=== PATIENT | male | born 1955 | race Caucasian/White ===

== ENCOUNTER 2016-06-14 12:55 | Outpatient (CLI) | payer OTHER ==
[~2016-06-14 12:55] MED LIST: BENAZEPRIL HCL20 MG PO; IBUPROFEN400 MG PO; MULTIVITAMIN1 TAB PO; NORCO1 TA1 PO; PANTOPRAZOLE SO40 MG PO; PROSTATE PO; TAMSULOSIN HCL0.4 MG PO; VITAMIN D-31000 UNIT PO
--- NOTE | 2016-06-16 08:17 | DIAGNOSTIC IMAGING REPORT ---
PROCEDURE: 2-D M-mode echo Doppler CLINICAL INDICATION: Atrial fib TECHNIQUE: Standard 2-D M-mode echo Doppler technique COMPARISON: None available FINDINGS: The aortic valve is normal configuration 1+ aortic insufficiency is apparent. The mitral valve is normal. The tricuspid valve exhibits 1+ TR with RVSP 40 pulmonic valve is normal mild left atrial enlargement is apparent right atrium is normal in size. Mild RVE is present with normal RV function LVH is present with an ejection fraction of 70% with normal contraction there are no abnormalities of the aortic order pericardium present. IMPRESSION: 1+ aortic insufficiency 1+ TR with RVSP 40 Mild left atrial enlargement Mild RVE with normal function LVH Ejection fraction 70% with normal contraction
[2016-08-17] MEDS ORDERED: ASPIRIN ADULT L81 M1 PO (16:58)
[2016-08-17] MEDS ORDERED: LOPRESSOR50 MG PO (16:58)
[2016-08-17] MEDS ORDERED: VITAMIN D-31000 UNIT PO (16:59)
== END 2016-06-14 23:00 ==
LOC: US SRH 12:55
DX: I35.1 Nonrheumatic aortic (valve) insufficiency (principal); I51.7 Cardiomegaly

== ENCOUNTER 2016-10-04 11:06 | Outpatient (CLI) | payer OTHER ==
[~2016-10-04 11:06] MED LIST changes: +ASPIRIN ADULT L81 M1 PO; +LOPRESSOR50 MG PO
--- NOTE | 2016-10-04 17:54 | DIAGNOSTIC IMAGING REPORT ---
PROCEDURE: XR UPPER GI WITH AIR INDICATION: Delayed gastric emptying. History of Aster fundoplication (1999). TECHNIQUE: Double contrast study. Fluoroscopy time, 5.7 minutes; 4081.06 mGy. 37 fluoroscopic images (including cinefluoroscopy). COMPARISON: None. FINDINGS: There is a large hiatal hernia (possible paraesophageal hernia) with rotation and horizontal position of the stomach. This is associated with esophageal distention, and delayed gastric emptying. Stomach and duodenum are otherwise normal. No evidence of mass or constricting lesion. IMPRESSION: 1. Large hiatal hernia (possible paraesophageal hiatal hernia) with rotation and horizontal position of the stomach. Findings are associated delayed gastric emptying with esophageal distention. 2. Findings discussed with the patient and report alert called to Dr. Franco.
== END 2016-10-04 23:00 | disposition home or self-care (01) ==
LOC: XR SRH 11:06
DX: K30 Functional dyspepsia (principal); K44.9 Diaphragmatic hernia without obstruction or gangrene; K22.9 Disease of esophagus, unspecified